=== PATIENT | male | born 1960 | race Caucasian/White ===

== ENCOUNTER 2020-01-29 22:12 | Emergency (ER) | payer MEDICAID ==
[~2020-01-29] VITALS: Ht 177.8 cm; Wt 70.5 kg
[2020-01-29 22:27] VITALS: Ht 177.8 cm; Wt 70.5 kg
[2020-01-29 22:52] LABS: BASOPHILS 0.3 % (0-2); EOSINOPHILS 4.3 % (0-7); HEMATOCRIT 45.3 % (42.0-54.0); IMMATURE GRANULOCYTES 0.2 % (0-5); LYMPHOCYTES 37.1 % (15-50); MCH 31.4 pg (26.0-34.0); MCHC 35.3 g/dL (31.0-37.0); MCV 88.8 fL (80.0-100.0); MEAN PLATELET VOLUME 8.3 fL (7.4-10.4); MONOCYTES 7.3 % (2-11); NEUTROPHILS 50.8 % (40-80); PLATELET COUNT 241 10x3/uL (130-400); RDW 11.8 % (11.5-14.5); WBC 6.3 10x3/uL (4.8-10.8)
[2020-01-29 23:00] LABS: CALC OSMOLALITY 261 mosm/kg (275-300); CALCIUM 8.6 mg/dL (8.5-10.1); CARBON DIOXIDE 27.4 mmol/L (21.0-32.0); CHLORIDE - SERUM 94 mmol/L (98-107); CREATININE - SERUM 0.9 mg/dL (0.6-1.3); GLUCOSE 105 mg/dL (74-106); POTASSIUM - SERUM 3.9 mmol/L (3.5-5.1); SODIUM 131 mmol/L (136-145); UREA NITROGEN 9 mg/dL (7-18); eGFR NON AFRICAN AMERICAN > 90 mL/min (90-120)
[2020-01-29 23:05] LABS: APTT 26.9 SECONDS (22.8-39.4); INR 0.93 (0.85-1.17); PROTIME 12.5 SECONDS (11.6-15.0)
[2020-01-29 23:24] LABS: ALBUMIN 3.8 g/dL (3.4-5.0); ALKALINE PHOSPHATASE 90 U/L (30-120); ALT (SGPT) 36 U/L (10-68); BILIRUBIN - TOTAL 0.24 mg/dL (0.2-1.3); CKMB 2.2 U/L (0.0-3.6); CREATINE KINASE 142 UL (21-232); PRO BNP 21 pg/mL (0-125); PROTEIN - SERUM 7.6 g/dL (6.4-8.2)
[2020-01-29 23:26] LABS: TROPONIN-I < 0.017 ng/mL (0.000-0.060)
[2020-01-30] MEDS ORDERED: ZITHROMAX500 MG PO (00:08)
[2020-01-30] MEDS ORDERED: COMBIVENT RESPIM4 GM INH (00:08)
[2020-01-30] MEDS ORDERED: MEDROL DOSE PACK4 MG PO (00:08)
[2020-01-30 00:24] VITALS: BP 132/85
== END 2020-01-30 00:25 | disposition home or self-care (01) ==
LOC: D.ER 22:12
PROVIDERS: Emergency Medicine
DX: J44.0 Chronic obstructive pulmonary disease with (acute) lower respiratory infection (principal); R05 Cough; R06.02 Shortness of breath; F17.200 Nicotine dependence, unspecified, uncomplicated; R42 Dizziness and giddiness